=== PATIENT | female | born 1950 | race Caucasian/White ===

== ENCOUNTER 2017-09-25 02:56 | Emergency (ER) | payer MEDICARE ==
[~2017-09-25] VITALS: Ht 152.4 cm; Wt 53.2 kg
[2017-09-25 03:01] VITALS: Ht 152.4 cm; Wt 53.2 kg
[2017-09-25] MEDS ORDERED: PHENYTOIN100 MG/4 M (03:03)
[2017-09-25 03:48] LABS: BASOPHILS 0.2 % (0-2); EOSINOPHILS 0.2 % (0-7); HEMATOCRIT 35.8 % (36.0-48.0); HEMOGLOBIN 12.1 g/dL (12-16); IMMATURE GRANULOCYTES 0.2 % (0-5); LYMPHOCYTES 8.8 % (15-50); MCHC 33.8 g/dL (31.0-37.0); MCV 82.9 fL (80.0-100.0); MEAN PLATELET VOLUME 9.1 fL (7.4-10.4); MONOCYTES 10.2 % (2-11); NEUTROPHILS 80.4 % (40-80); PLATELET COUNT 205 10x3/uL (130-400); RBC 4.32 10x6/uL (4.00-5.40); RDW 17.5 % (11.5-14.5); WBC 4.9 10x3/uL (4.8-10.8)
[2017-09-25 04:03] LABS: ALKALINE PHOSPHATASE 193 U/L (46-116); ALT (SGPT) 17 U/L (10-68); BILIRUBIN - TOTAL 0.22 mg/dL (0.2-1.3); CALC OSMOLALITY 249 mosm/kg (275-300); CALCIUM 8.6 mg/dL (8.5-10.1); CARBON DIOXIDE 27.2 mmol/L (21.0-32.0); CHLORIDE - SERUM 87 mmol/L (98-107); CREATININE - SERUM 0.5 mg/dL (0.6-1.3); GLUCOSE 228 mg/dL (74-106); POTASSIUM - SERUM 3.4 mmol/L (3.5-5.1); PROTEIN - SERUM 6.8 g/dL (6.4-8.2); SODIUM 122 mmol/L (136-145); UREA NITROGEN 5 mg/dL (7-18); eGFR NON AFRICAN AMERICAN > 90 mL/min (90-120)
[2017-09-25 07:06] LABS: APPEARANCE HAZY (CLEAR); BILIRUBIN NEGATIVE (NEGATIVE); COLOR STRAW (YELLOW); GLUCOSE 100 mg/dL (NEGATIVE); KETONE NEGATIVE (NEGATIVE); NITRITE NEGATIVE (NEGATIVE); UROBILINOGEN NORMAL (NORMAL)
[2017-09-25 07:08] LABS: BACTERIA FEW /hpf (NONE SEEN); RED CELLS - URINE RARE /hpf (0-5); WHITE CELLS - URINE 25-50 /hpf (0-5)
[2017-09-25 07:09] LABS: HYALINE CAST OCC /lpf (NONE SEEN); PROTEIN NEGATIVE (NEGATIVE)
[2017-09-25 12:13] VITALS: BP 143/98
== END 2017-09-25 12:12 | disposition other institution (70) ==
LOC: D.ER 02:56 → EDBD 02:56 → D.ER 12:12
PROVIDERS: Family Medicine
DX: E16.2 Hypoglycemia, unspecified (principal); E87.6 Hypokalemia; E87.1 Hypo-osmolality and hyponatremia; T68.XXXA Hypothermia, initial encounter

== ENCOUNTER 2019-02-14 19:38 | Inpatient (IN) | payer MEDICARE ==
[~2019-02-14] VITALS: Ht 152.4 cm; Wt 49.9 kg
[~2019-02-14 19:38] MED LIST: PHENYTOIN100 MG/4 M
[2019-02-14] MEDS ORDERED: ALBUTEROL SULF8.5 GM INH (19:43)
[2019-02-14] MEDS ORDERED: METOPROLOL TART25 MG PO (19:44)
[2019-02-14 20:45] LABS: BASOPHILS 0.5 % (0-2); EOSINOPHILS 5.4 % (0-7); HEMATOCRIT 31.2 % (36.0-48.0); HEMOGLOBIN 9.9 g/dL (12-16); IMMATURE GRANULOCYTES 0.2 % (0-5); MCH 27.7 pg (26.0-34.0); MCHC 31.7 g/dL (31.0-37.0); MCV 87.4 fL (80.0-100.0); MEAN PLATELET VOLUME 8.6 fL (7.4-10.4); MONOCYTES 13.7 % (2-11); NEUTROPHILS 66.2 % (40-80); PLATELET COUNT 312 10x3/uL (130-400); RBC 3.57 10x6/uL (4.00-5.40); RDW 15.4 % (11.5-14.5); WBC 6.3 10x3/uL (4.8-10.8)
[2019-02-14 21:00] LABS: CALC OSMOLALITY 258 mosm/kg (275-300); CARBON DIOXIDE 28.4 mmol/L (21.0-32.0); CHLORIDE - SERUM 96 mmol/L (98-107); CREATININE - SERUM 0.6 mg/dL (0.6-1.3); GLUCOSE 85 mg/dL (74-106); POTASSIUM - SERUM 4.2 mmol/L (3.5-5.1); SODIUM 131 mmol/L (136-145); UREA NITROGEN 5 mg/dL (7-18); eGFR NON AFRICAN AMERICAN > 90 mL/min (90-120)
[2019-02-14 21:14] LABS: ALBUMIN 3.6 g/dL (3.4-5.0); ALKALINE PHOSPHATASE 216 U/L (46-116); ALT (SGPT) 21 U/L (10-68); BILIRUBIN - TOTAL 0.26 mg/dL (0.2-1.3); PRO BNP 749 pg/mL (0-125); THYROID STIMULATING HORMONE 3.06 uIU/mL (0.36-3.74)
[2019-02-14 21:15] LABS: TROPONIN-I < 0.017 ng/mL (0.000-0.060)
[2019-02-14 21:30] VITALS: BP 135/72
[2019-02-14 21:50] LABS: APPEARANCE HAZY (CLEAR); BILIRUBIN NEGATIVE (NEGATIVE); COLOR STRAW (YELLOW); GLUCOSE NEGATIVE (NEGATIVE); KETONE NEGATIVE (NEGATIVE); NITRITE NEGATIVE (NEGATIVE); PROTEIN NEGATIVE (NEGATIVE); SPECIFIC GRAVITY 1.005 (1.005-1.020); UROBILINOGEN NORMAL (NORMAL)
[2019-02-14 21:54] LABS: WHITE CELLS - URINE >50 /hpf (NEGATIVE)
[2019-02-14 21:55] LABS: BACTERIA MANY /hpf (NEGATIVE); EPITHELIAL CELLS 0-5 /hpf (0-5); RED CELLS - URINE 0-5 /hpf (0-5); UDS - AMPHET NEGATIVE QUAL (NEGATIVE); UDS - BARB NEGATIVE QUAL (NEGATIVE); UDS - BENZO NEGATIVE QUAL (NEGATIVE); UDS - COCAINE NEGATIVE QUAL (NEGATIVE); UDS - OPIATE NEGATIVE QUAL (NEGATIVE); UDS - PCP NEGATIVE QUAL (NEGATIVE); UDS - THC NEGATIVE QUAL (NEGATIVE)
--- NOTE | 2019-02-14 22:20 | NUR ---
PT HAS SMALL LAC TO BACK OF HEAD THAT CON'T TO OOZE. DR DE LA TORRE TO ROOM. SMALL NOHEMY X [address] DE LA TORRE.
--- NOTE | 2019-02-14 22:25 | NUR ---
MADRID INSERTED FOR AMS PER STERILE TECHNIQUE. CLEAR YELLOW URINE OBTAINED.
--- NOTE | 2019-02-14 22:26 | NUR ---
KERLEX DRESSING APPLIED TO HEAD. PLACED IN GOWN.
--- NOTE | 2019-02-14 22:38 | NUR ---
PT ALERT AND ORIENTED X3 AT THIS TIME. PT IS APPROPRIATELY ANSWERING QUESTIONS AND IS ABLE TO FOLLOW COMMANDS APPROPRIATELY.
--- NOTE | 2019-02-14 23:00 | NUR ---
ADMITED TO ROOM, ALERT ORIENTIATED TO PERSON AND PLACE, DOES NOT KNOW DAY OR YEAR, OR WHY SHE IS IN HOSPITAL, STATES I HAVE BEEN SICK FOR SEVERAL DAYS, DOES NOT REMEMBER FALLING AT HOME, DRESSING TO HEAD C/D/I, MADRID CATH DRAINING CLEAR YELLOW URINE, SEE ASSESSMENT, CALL LIGHT IN REACH, FALL PRECAUTIONS IN USE
[2019-02-14 23:14] VITALS: BP 128/69; BMI 21.5
[2019-02-15 05:21] VITALS: BP 102/72
[2019-02-15 07:08] LABS: BASOPHILS 0.4 % (0-2); EOSINOPHILS 5.5 % (0-7); HEMATOCRIT 29.2 % (36.0-48.0); HEMOGLOBIN 9.1 g/dL (12-16); IMMATURE GRANULOCYTES 0.2 % (0-5); LYMPHOCYTES 17.8 % (15-50); MCH 27.7 pg (26.0-34.0); MCHC 31.2 g/dL (31.0-37.0); MCV 88.8 fL (80.0-100.0); MEAN PLATELET VOLUME 9.5 fL (7.4-10.4); MONOCYTES 23.2 % (2-11); NEUTROPHILS 52.9 % (40-80); PLATELET COUNT 177 10x3/uL (130-400); RBC 3.29 10x6/uL (4.00-5.40); RDW 15.7 % (11.5-14.5); WBC 5.7 10x3/uL (4.8-10.8)
--- NOTE | 2019-02-15 08:00 | NUR ---
AWAKE AND ORIENTED TO SELF AND PLACE. FALL PRECAUTIONS IN PLACE. MADRID CATH INTACT WITH RAMOS URINE. [place]. LACERATION WITH STALPLES NOTED TO OCCIPITAL LOBE AND INTACT. IVF INFUSING AT PRESCRIBED RATE WITH NO S/S OF INFECTION/INFILTRATION AT SITE. ENCOURAGED TO USE CALL LIGHT FOR ASSIST.
[2019-02-15 08:25] LABS: ALBUMIN 2.7 g/dL (3.4-5.0); ALKALINE PHOSPHATASE 166 U/L (46-116); ALT (SGPT) 16 U/L (10-68); BILIRUBIN - TOTAL 0.24 mg/dL (0.2-1.3); CALC OSMOLALITY 262 mosm/kg (275-300); CARBON DIOXIDE 24.6 mmol/L (21.0-32.0); CHLORIDE - SERUM 101 mmol/L (98-107); CREATININE - SERUM 0.6 mg/dL (0.6-1.3); GLUCOSE 93 mg/dL (74-106); PROTEIN - SERUM 6.4 g/dL (6.4-8.2); SODIUM 133 mmol/L (136-145); UREA NITROGEN 4 mg/dL (7-18); eGFR NON AFRICAN AMERICAN > 90 mL/min (90-120)
[2019-02-15 08:28] VITALS: BP 111/69
[2019-02-15 09:33] LABS: PHENYTOIN (DILANTIN) 25.2 ug/mL (10.0-20.0)
[2019-02-15 09:39] LABS: % SATURATION 11 % (15-55); IRON 39 ug/dl (35-150); TOTAL IRON BIND CAPACITY 339 ug/dl (260-445); UNSAT IRON BIND CAPACITY 300 ug/dl (150-375)
[2019-02-15 11:30] VITALS: BP 155/65
[2019-02-15 12:09] VITALS: BP 155/65
[2019-02-15] MEDS ORDERED: TENORMIN25 MG PO (12:51)
[2019-02-15] MEDS ORDERED: LISINOPRIL10 MG (12:51)
[2019-02-15] MEDS ORDERED: PHENYTEK300 MG (12:53)
[2019-02-15] MEDS ORDERED: RANITIDINE HCL150 M1 PO (12:54)
[2019-02-15] MEDS ORDERED: RANITIDINE HCL150 M1 (12:55)
[2019-02-15] MEDS ORDERED: TRAZODONE HCL150 MG (12:56)
[2019-02-15] MEDS ORDERED: NEURONTIN 300300 MG (12:57)
[2019-02-15] MEDS ORDERED: KEPPRA500 MG (12:58)
[2019-02-15 16:11] VITALS: BP 123/68
[2019-02-15 16:43] LABS: UDS - AMPHET NEGATIVE QUAL (NEGATIVE); UDS - BARB NEGATIVE QUAL (NEGATIVE); UDS - BENZO NEGATIVE QUAL (NEGATIVE); UDS - COCAINE NEGATIVE QUAL (NEGATIVE); UDS - OPIATE NEGATIVE QUAL (NEGATIVE); UDS - PCP NEGATIVE QUAL (NEGATIVE); UDS - THC NEGATIVE QUAL (NEGATIVE)
[2019-02-15 20:51] VITALS: BP 130/70
--- NOTE | 2019-02-15 21:12 | NUR ---
PT ALERT & ORIENTED. VITAL SIGNS STABLE. C/O RLQ ABDOMINAL PAIN 11/01. STATES IT HAS BEEN HURTING "ALL DAY". GAVE 1 TAB NORCO-5 PO AND SCHEDULED MEDS. ASSESSMENT COMPLETE PER FLOW-SHEET. MADE PT SOME ICED TEA. NO OTHER NEEDS. WILL CONTINUE TO MONITOR.
[2019-02-16 01:05] VITALS: BP 126/76
[2019-02-16 05:06] VITALS: BP 124/85
[2019-02-16 06:43] LABS: CALC OSMOLALITY 274 mosm/kg (275-300); CALCIUM 7.8 mg/dL (8.5-10.1); CARBON DIOXIDE 22.5 mmol/L (21.0-32.0); CHLORIDE - SERUM 109 mmol/L (98-107); CREATININE - SERUM 0.5 mg/dL (0.6-1.3); GLUCOSE 77 mg/dL (74-106); POTASSIUM - SERUM 4.2 mmol/L (3.5-5.1); SODIUM 140 mmol/L (136-145); UREA NITROGEN 5 mg/dL (7-18); eGFR NON AFRICAN AMERICAN > 90 mL/min (90-120)
[2019-02-16 07:02] LABS: HEMATOCRIT 24.1 % (36.0-48.0); HEMOGLOBIN 7.6 g/dL (12-16); MCH 27.5 pg (26.0-34.0); MCHC 31.5 g/dL (31.0-37.0); MCV 87.3 fL (80.0-100.0); MEAN PLATELET VOLUME 9.4 fL (7.4-10.4); RBC 2.76 10x6/uL (4.00-5.40); RDW 15.6 % (11.5-14.5)
[2019-02-16 07:16] LABS: PLATELET COUNT 296 10x3/uL (130-400)
[2019-02-16 08:22] VITALS: BP 122/73
[2019-02-16 09:09] LABS: BASOPHILS 1 % (0-2); EOSINOPHILS 9 % (0-7); LYMPHOCYTES 40 % (15-50); MONOCYTES 16 % (2-11); NEUTROPHILS 33 % (40-80); PLATELET ESTIMATE NORMAL
[2019-02-16 09:10] LABS: ACANTHOCYTES OCC; ANISOCYTOSIS OCC; CRENATED CELLS OCC; ROULEAUX OCC; SMUDGE CELLS OCC
--- NOTE | 2019-02-16 09:34 | NUR ---
PT SITTING UP IN BED. RESP EVEN AND UNLABORED. PT ALERT AND ORIENTED. SOMEWHAT CONFUSED TO DAY AND TIME AT THIS TIME. EASILY REORIENTED. NOHEMY NOTED TO POSTERIOR HEAD. NO DRAINAGE NOTED. IV TO LEFT HAND WITH NS @ 100ML/HR INFUSING VIA PUMP. SITE WITHOUT REDNESS OR EDEMA. F/C PATENT TO GRAVITY DRAINING YELLOW URINE. PT DENIES PAIN AT THIS TIME, DENIES FURTHER NEEDS. CL WITHIN REACH. ENCOURAGED TO CALL WITH NEEDS. CONTINUE POC
[2019-02-16 12:21] LABS: % SATURATION 9 % (15-55); IRON 31 ug/dl (35-150); TOTAL IRON BIND CAPACITY 338 ug/dl (260-445); UNSAT IRON BIND CAPACITY 307 ug/dl (150-375)
[2019-02-16 12:52] VITALS: BP 136/74
[2019-02-16 13:57] VITALS: Ht 152.4 cm; Wt 49.9 kg
--- NOTE | 2019-02-16 14:00 | NUR ---
FIRST UNIT PRBC STARTED PER MD ORDERS.
[2019-02-16 14:52] LABS: APPEARANCE SL CLDY (CLEAR); BILIRUBIN NEGATIVE (NEGATIVE); COLOR YELLOW (YELLOW); GLUCOSE NEGATIVE (NEGATIVE); KETONE NEGATIVE (NEGATIVE); NITRITE POSITIVE (NEGATIVE); PROTEIN TRACE mg/dL (NEGATIVE); SPECIFIC GRAVITY 1.015 (1.005-1.020); UROBILINOGEN NORMAL (NORMAL)
[2019-02-16 14:53] LABS: BACTERIA MANY /hpf (NEGATIVE); EPITHELIAL CELLS 0-5 /hpf (0-5); MUCUS <1+ /lpf (NONE SEEN); RED CELLS - URINE 0-5 /hpf (0-5)
--- NOTE | 2019-02-16 17:08 | MORECARE ---
CASE MANAGEMENT DISCHARGE SUMMARY PATIENT: BELLO HILL S UNIT: [id number] ADM DATE: 02/15/19 AGE: 68 : 51 SEX: F ROOM/BED: D.[facility] AUTHOR: DANELLE ALCARAZ PHYSICIAN: REFERRING PHYSICIAN: JOEY EDWARDS MD DATE OF SERVICE: 02/16/19 Discharge Plan Patient Name: BELLO HILL [facility] : 1950 Planned Disposition: Home Anticipated Discharge Date: Discharge Date: Expected LOS: Initial Reviewer: [email or web address] Initial Review Date: 02/14/2019 Generated: 02/16/19 6:08 pm DCPIA - Discharge Planning Initial Assessment Updated by [email or web address]: Lynda Cortez on 02/16/19 5:04 pm * Is the patient Alert and Oriented? Yes * How many steps to enter\exit or inside your home? Ramp/0 * PCP Jimena Delgadillo with [facility] * Pharmacy [facility] * Preadmission Environment Home with Family * ADLs Partial Dependent * Partial ADLs (Assistance needed) Ambulation Bathing Medication Management * Equipment Walker * List name and contact numbers for known caregivers / representatives who currently or will assist patient after discharge: Mike Hill - ssztaz - [phone] * Verbal permission to speak to the caregivers and representatives has been obtained from the patient. Yes * Community resources currently utilized None * Additional services required to return to the preadmission environment? No * Can the patient safely return to the preadmission environment? Yes * Has this patient been hospitalized within the prior 30 days at any hospital? No Patient Name: BELLO HILL Page [id number] at 1708 All edits/amendments must be made on the electronic document DICTATION DATE: 02/16/191707 EQUIPMENT SUPERINTENDENT: NIKITA 02/16/191707 RPT#: [id number] DC DATE: STATUS: ADM IN [facility] [address] [place] [address] END OF REPORT
--- NOTE | 2019-02-16 18:00 | NUR ---
2ND UNIT PRBC INITIATED. PT PABLITO 1ST UNIT WELL.
--- NOTE | 2019-02-16 20:00 | NUR ---
ALERT RESTING IN BED, BLOOD INFUSING WITHOUT DIFFICULTY, AT BEDSIDE, DENIES NEEDS, CO HEADACHE SEE SHIFT ASSESSMENT CALL LIGHT IN REACH
[2019-02-16 20:41] VITALS: BP 136/81
[2019-02-17 01:39] VITALS: BP 130/70
[2019-02-17 04:49] VITALS: BP 130/69
[2019-02-17 06:58] LABS: BASOPHILS 0.5 % (0-2); EOSINOPHILS 7.1 % (0-7); IMMATURE GRANULOCYTES 0.3 % (0-5); LYMPHOCYTES 27.9 % (15-50); MCH 27.9 pg (26.0-34.0); MCHC 32.3 g/dL (31.0-37.0); MCV 86.2 fL (80.0-100.0); MEAN PLATELET VOLUME 8.9 fL (7.4-10.4); MONOCYTES 12.7 % (2-11); NEUTROPHILS 51.5 % (40-80); PLATELET COUNT 266 10x3/uL (130-400); RDW 15.2 % (11.5-14.5)
[2019-02-17 07:01] LABS: CALC OSMOLALITY 268 mosm/kg (275-300); CALCIUM 7.8 mg/dL (8.5-10.1); CARBON DIOXIDE 21.1 mmol/L (21.0-32.0); CHLORIDE - SERUM 105 mmol/L (98-107); GLUCOSE 82 mg/dL (74-106); POTASSIUM - SERUM 3.6 mmol/L (3.5-5.1); SODIUM 136 mmol/L (136-145); UREA NITROGEN 6 mg/dL (7-18)
[2019-02-17 07:02] LABS: CREATININE - SERUM 0.7 mg/dL (0.6-1.3); PHENYTOIN (DILANTIN) 11.9 ug/mL (10.0-20.0); eGFR NON AFRICAN AMERICAN 88 mL/min (90-120)
[2019-02-17 07:04] LABS: HEMATOCRIT 32.5 % (36.0-48.0); HEMOGLOBIN 10.5 g/dL (12-16); RBC 3.77 10x6/uL (4.00-5.40); WBC 3.9 10x3/uL (4.8-10.8)
--- NOTE | 2019-02-17 08:20 | NUR ---
AWAKE AND ALERT. ORIENTED X3. NO C/O AT THIS TIME. LUNGS ARE CLEAR BUT DIMINISHED, OCCASSIONAL DRY COUGH NOTED. SKIN IS INTACT WTIHOUT REDNESS. IV TO LEFT UPPER ARM IS PATENT WITHOUT REDNESS AT INSERTION SITE. MADRID PATENT WITH CLEAR YELLOW URINE. DENIES NEEDS. VERY SLEEPY.
[2019-02-17 08:53] VITALS: BP 152/84
--- NOTE | 2019-02-17 10:00 | NUR ---
RESTING QUIETLY WITH EYES CLOSED. DENIES NEEDS.
[2019-02-17] MEDS ORDERED: OMNICEF300 MG PO (11:20)
--- NOTE | 2019-02-17 11:58 | NUR ---
REQUESTED AND GIVEN ONE HYDROCODONE PO FOR C/O RIGHT SIDE PAIN LEVEL 7. WILL MONITOR.
--- NOTE | 2019-02-17 12:15 | MORECARE ---
CASE MANAGEMENT DISCHARGE SUMMARY PATIENT: BELLO HILL UNIT: [id number] ADM DATE: 02/15/19 AGE: 68 : 51 SEX: F ROOM/BED: D.2233 AUTHOR: LISSA,DOC PHYSICIAN: REFERRING PHYSICIAN: JOEY EDWARDS MD DATE OF SERVICE: 02/17/19 Discharge Plan Patient Name: BELLO HILL Facility: [facility]:[place] : 1950 Planned Disposition: Home Anticipated Discharge Date: Discharge Date: Expected LOS: Initial Reviewer: [email or web address] Initial Review Date: 02/14/2019 Generated: 02/17/19 1:15 pm DCP- Discharge Planning Updated by [email or web address]: Lynda Cortez on 02/16/19 4:[address] Patient Name: BELLO HILL Admission Status: ER Accout number: [id number] Admission Date: 02-15-2019 : 1950 Admission Diagnosis: Attending: JOEY EDWARDS Current LOS: 1 Anticipated DC Date: Planned Disposition: Home Primary Insurance: MEDICARE A & B Discharge Planning Comments: CM met with patient to discuss discharge planning/needs. States she lives with her and one of her daughters. States her takes care of her. States she walks unaided. States if I have any questions, I can call her . I called her to discuss discharge planning. He states that she walks with a walker. States he assists with medication management and showers. States they have a ramp built outside to assist with getting into the home. States she may need home health on discharge and I verbally told him the names of the [facility] in town and he chooses [facility]. States she has been at [facility] in the past, but would like her to return home with home health. CM will continue to follow and assist with discharge planning/needs. Manager Architectural: Lynda Cortez DCPIA - Discharge Planning Initial Assessment Updated by [email or web address]: Lynda Cortez on 02/16/19 5:04 pm * Is the patient Alert and Oriented? Yes * How many steps to enter\exit or inside your home? Ramp/0 * PCP Jimena Delgadillo with [facility] * Pharmacy [facility] * Preadmission Environment Home with Family * ADLs Partial Dependent * Partial ADLs (Assistance needed) Ambulation Bathing Medication Management * Equipment Walker * List name and contact numbers for known caregivers / representatives who currently or will assist patient after discharge: Mike Hill - spouse - [phone] * Verbal permission to speak to the caregivers and representatives has been obtained from the patient. Yes * Community resources currently utilized None * Additional services required to return to the preadmission environment? No * Can the patient safely return to the preadmission environment? Yes * Has this patient been hospitalized within the prior 30 days at any hospital? No External Providers External Provider: [facility] Next Contact Date: Service Request Date: Service Type: Resolution: Reviewer: Comments: Coverage Notice Reviewer: [email or web address] Lissette Cortez Notice Issued Date-Time: 02/16/2019 17:08 Notice Type: Patient Choice Letter Notice Delivered To: Family Member Relationship to Patient: Spouse Specialty Therapist Name: Mike Hill Delivery Method: HAND - Hand Delivered Tammi Days: Prior Verbal Notification: Recipient Understood Notice: Yes Recipient Signature: Yes Med Rec Note Co-signed by Attending: Coverage Notice Comment: TABITHA for [facility] Last DP export: 02/16/19 4:08 Patient Name: BELLO HILL Page [id number] at 1215 All edits/amendments must be made on the electronic document DICTATION DATE: 02/17/19 1215 INFANTRY WEAPONS CREWMEMBER: NIKITA 02/17/19 1215 RPT#: [id number] DC DATE: STATUS: ADM IN [facility] [address] [place] [address] END OF REPORT
--- NOTE | 2019-02-17 12:22 | MORECARE ---
CASE MANAGEMENT DISCHARGE SUMMARY PATIENT: BELLO HILL UNIT: [id number] ADM DATE: 02/15/19 AGE: 68 : 51 SEX: F ROOM/BED: D.2233 AUTHOR: DANELLE ALCARAZ PHYSICIAN: REFERRING PHYSICIAN: JOEY EDWARDS MD DATE OF SERVICE: 02/17/19 Discharge Plan Patient Name: BELLO HILL Facility: [facility]:[place] : 1950 Planned Disposition: Home Anticipated Discharge Date: Discharge Date: Expected LOS: Initial Reviewer: [email or web address] Initial Review Date: 02/14/2019 Generated: 02/17/19 1:22 pm Comments DCP- Discharge Planning Updated by [email or web address]: Lynda Arcemj on 02/17/19 11:[address] Patient Name: BELLO HILL Encounter No: [id number] : 1950 Primary Insurance: MEDICARE A & B Anticipated DC Date: Planned Disposition: Home External Planned Provider: : DCP follow-up note: Patient and family in agreement with discharge plan. No changes to plan. Patient is asleep in room. I called patient's , he states he will be here in about an hour to take her home. He agrees with [facility]. I called Ray with [facility] and clinical faxed. Home today with home health. Case management will follow and assist as needed. Lynda Cortez DCP- Discharge Planning Updated by [email or web address]: Lynda Cortez on 02/16/19 4:[address] Patient Name: BELLO HILL Admission Status: ER Accout number: [id number] Admission Date: 02-15-2019 : 1950 Admission Diagnosis: Attending: JOEY EDWARDS Current LOS: 1 Anticipated DC Date: Planned Disposition: Home Primary Insurance: MEDICARE A & B Discharge Planning Comments: CM met with patient to discuss discharge planning/needs. States she lives with her and one of her daughters. States her takes care of her. States she walks unaided. States if I have any questions, I can call her . I called her to discuss discharge planning. He states that she walks with a walker. States he assists with medication management and showers. States they have a ramp built outside to assist with getting into the home. States she may need home health on discharge and I verbally told him the names of the [facility] in town and he chooses [facility]. States she has been at [facility] in the past, but would like her to return home with home health. CM will continue to follow and assist with discharge planning/needs. Community Relations Liaison: Lynda Cortez DCPIA - Discharge Planning Initial Assessment Updated by [email or web address]: Lynda Cortez on 02/16/19 5:04 pm * Is the patient Alert and Oriented? Yes * How many steps to enter\exit or inside your home? Ramp/0 * PCP Jimena Delgadillo with [facility] * Pharmacy [facility] * Preadmission Environment Home with Family * ADLs Partial Dependent * Partial ADLs (Assistance needed) Ambulation Bathing Medication Management * Equipment Walker * List name and contact numbers for known caregivers / representatives who currently or will assist patient after discharge: Mike Gendle - spouse - [phone] * Verbal permission to speak to the caregivers and representatives has been obtained from the patient. Yes * Community resources currently utilized None * Additional services required to return to the preadmission environment? No * Can the patient safely return to the preadmission environment? Yes * Has this patient been hospitalized within the prior 30 days at any hospital? No Coverage Notice Reviewer: [email or web address] - Lynda Cortez Notice Issued Date-Time: 02/16/2019 17:08 Notice Type: Patient Choice Letter Notice Delivered To: Family Member Relationship to Patient: Spouse Panel Edge Painter Name: Mike Hill Delivery Method: HAND - Hand Delivered Tammi Days: Prior Verbal Notification: Recipient Understood Notice: Yes Recipient Signature: Yes Med Rec Note Co-signed by Attending: Coverage Notice Comment: TABITHA for [facility] Last DP export: 02/17/19 11:15 Patient Name: SERGIO BELLO Page [id number] at 1222 All edits/amendments must be made on the electronic document DICTATION DATE: 02/17/19 1222 GOVERNMENT AFFAIRS MANAGER: NIKITA 02/17/19 1222 RPT#: [id number] DC DATE: STATUS: ADM IN [facility] [address] [place] [address] END OF REPORT
--- NOTE | 2019-02-17 13:08 | NUR ---
SITTING UP IN BED EATING LUNCH. DENIES NEEDS.
--- NOTE | 2019-02-17 15:00 | NUR ---
MADRID D/C WITH TIP INTACT WITHOUT DIFFICULTY. DENIES NEEDS. PLACED BRIEF FOR COMFORT.
--- NOTE | 2019-02-17 16:14 | NUR ---
OT NOTE: PT COMPLETED SUPINE TO SIT WITH [facility]GA. PT COMPLETED ADL MOB WITH RW WITH CGA. PT COMPLETED TOILETING TASKS WITH CGA. THANK YOU, MENA EVERETT
--- NOTE | 2019-02-17 16:57 | NUR ---
DISCHARGED TO HOME AMBULATORY WITH FAMILY. DISCHARGE INSTRUCTION GIVEN BOTH VERBALLY AND WRITTEN. ALL QUESTIONS ANSWERED. PATIENT AND VERBALIZED UNDERSTANDING OF SAME. IV TO LEFT UPPER ARM D/C WITH CAHETER INTACT. ALL BELONGINGS WITH PATIENT.
--- NOTE | 2019-02-18 07:29 | MORECARE ---
CASE MANAGEMENT DISCHARGE SUMMARY PATIENT: BELLO HILL UNIT: [id number] ADM DATE: 02/15/19 AGE: 68 : 51 SEX: F ROOM/BED: D.2233 AUTHOR: DANELLE ALCARAZ PHYSICIAN: REFERRING PHYSICIAN: JOEY EDWARDS MD DATE OF SERVICE: 02/18/19 Discharge Plan Patient Name: BELLO HILL Facility: [facility]:[place] : 1950 Planned Disposition: Home Anticipated Discharge Date: Discharge Date: 02/17/2019 Expected LOS: 0 Initial Reviewer: [email or web address] Initial Review Date: 02/14/2019 Generated: 02/18/19 8:29 am DCP- Discharge Planning Updated by [email or web address]: Lynda Cortez on 02/17/19 11:[address] Patient Name: BELLO HILL Encounter No: [id number] : 1950 Primary Insurance: MEDICARE A & B Anticipated DC Date: Planned Disposition: Home External Planned Provider: : DCP follow-up note: Patient and family in agreement with discharge plan. No changes to plan. Patient is asleep in room. I called patient's , he states he will be here in about an hour to take her home. He agrees with [facility]. I called Ray with [facility] and clinical faxed. Home today with home health. Case management will follow and assist as needed. Lynda Diego DCP- Discharge Planning Updated by [email or web address]: Lynda Diego on 02/16/19 4:[address] Patient Name: BELLO HILL Admission Status: ER Accout number: [id number] Admission Date: 02-15-2019 : 1950 Admission Diagnosis: Attending: JOEY EDWARDS Current LOS: 1 Anticipated DC Date: Planned Disposition: Home Primary Insurance: MEDICARE A & B Discharge Planning Comments: CM met with patient to discuss discharge planning/needs. States she lives with her and one of her daughters. States her takes care of her. States she walks unaided. States if I have any questions, I can call her . I called her to discuss discharge planning. He states that she walks with a walker. States he assists with medication management and showers. States they have a ramp built outside to assist with getting into the home. States she may need home health on discharge and I verbally told him the names of the [facility] in town and he chooses [facility]. States she has been at [facility] in the past, but would like her to return home with home health. CM will continue to follow and assist with discharge planning/needs. Acute Care Registered Nurse: Lynda Cortez DCPIA - Discharge Planning Initial Assessment Updated by [email or web address]: Lynda Cortez on 02/16/19 5:04 pm * Is the patient Alert and Oriented? Yes * How many steps to enter\exit or inside your home? Ramp/0 * PCP Jimena Delgadillo with [facility] * Pharmacy [facility] * Preadmission Environment Home with Family * ADLs Partial Dependent * Partial ADLs (Assistance needed) Ambulation Bathing Medication Management * Equipment Walker * List name and contact numbers for known caregivers / representatives who currently or will assist patient after discharge: Mike Gendle - spouse - [phone] * Verbal permission to speak to the caregivers and representatives has been obtained from the patient. Yes * Community resources currently utilized None * Additional services required to return to the preadmission environment? No * Can the patient safely return to the preadmission environment? Yes * Has this patient been hospitalized within the prior 30 days at any hospital? No Coverage Notice Reviewer: [id number] - Lynda Cortez Notice Issued Date-Time: 02/16/2019 17:08 Notice Type: Patient Choice Letter Notice Delivered To: Family Member Relationship to Patient: Spouse Recruitment Specialist Name: Mike Hill Delivery Method: HAND - Hand Delivered Tammi Days: Prior Verbal Notification: Recipient Understood Notice: Yes Recipient Signature: Yes Med Rec Note Co-signed by Attending: Coverage Notice Comment: TABITHA for [facility] Last DP export: 02/17/19 11:22 Patient Name: SERGIOBELLO Page [phone] at 0729 All edits/amendments must be made on the electronic document DICTATION DATE: 02/18/19728 DAIRY PROCESSING SUPERVISOR: NIKITA 02/18/19728 RPT#: [id number] DC DATE:02/17/19 STATUS: DIS IN [facility] [address] [place] [address] END OF REPORT
== END 2019-02-17 16:59 | disposition home health service (06) | DRG 91 ==
LOC: D.ER 19:38 → OBSVTIME 21:40 → D.MS 21:40
PROVIDERS: Family Medicine; Internal Medicine Nephrology; ADMIT Family Medicine; ATTEND Family Medicine
DX: G92 Toxic encephalopathy (principal); E43 Unspecified severe protein-calorie malnutrition; N39.0 Urinary tract infection, site not specified; E87.1 Hypo-osmolality and hyponatremia; S01.01XA Laceration without foreign body of scalp, initial encounter; W01.198A Fall on same level from slipping, tripping and stumbling with subsequent striking against other object, initial encounter; Y92.009 Unspecified place in unspecified non-institutional (private) residence as the place of occurrence of the external cause; D64.9 Anemia, unspecified; G40.909 Epilepsy, unspecified, not intractable, without status epilepticus; J44.9 Chronic obstructive pulmonary disease, unspecified; I10 Essential (primary) hypertension; T42.0X5A Adverse effect of hydantoin derivatives, initial encounter; B96.20 Unspecified Escherichia coli [E. coli] as the cause of diseases classified elsewhere

== ENCOUNTER 2019-04-03 17:39 | Inpatient (IN) | payer MEDICARE ==
[~2019-04-03] VITALS: Ht 152.4 cm; Wt 59.0 kg
[~2019-04-03 17:39] MED LIST changes: +ALBUTEROL SULF8.5 GM INH; +KEPPRA500 MG PO; +LISINOPRIL10 MG PO; +METOPROLOL TART25 MG PO; +NEURONTIN 300300 MG PO; +OMNICEF300 MG PO; +PHENYTEK300 MG; +PHENYTEK300 MG PO; -PHENYTOIN100 MG/4 M; +RANITIDINE HCL150 M1 PO; +TENORMIN25 MG PO; +TRAZODONE HCL150 MG
[2019-04-03 18:26] LABS: BASOPHILS 0.2 % (0-2); EOSINOPHILS 1.8 % (0-7); HEMOGLOBIN 10.1 g/dL (12-16); IMMATURE GRANULOCYTES 0.2 % (0-5); LYMPHOCYTES 24.6 % (15-50); MCH 28.6 pg (26.0-34.0); MCHC 32.6 g/dL (31.0-37.0); MCV 87.8 fL (80.0-100.0); MEAN PLATELET VOLUME 8.8 fL (7.4-10.4); MONOCYTES 9.8 % (2-11); NEUTROPHILS 63.4 % (40-80); RBC 3.53 10x6/uL (4.00-5.40); RDW 18.9 % (11.5-14.5); WBC 4.5 10x3/uL (4.8-10.8)
[2019-04-03 18:29] LABS: PLATELET COUNT 349 10x3/uL (130-400)
[2019-04-03 19:02] LABS: CALC OSMOLALITY 278 mosm/kg (275-300); CALCIUM 8.9 mg/dL (8.5-10.1); CARBON DIOXIDE 27.6 mmol/L (21.0-32.0); CHLORIDE - SERUM 101 mmol/L (98-107); CREATININE - SERUM 0.6 mg/dL (0.6-1.3); GLUCOSE 137 mg/dL (74-106); SODIUM 138 mmol/L (136-145); UREA NITROGEN 16 mg/dL (7-18); eGFR NON AFRICAN AMERICAN > 90 mL/min (90-120)
[2019-04-03 19:18] LABS: ALBUMIN 3.2 g/dL (3.4-5.0); ALKALINE PHOSPHATASE 184 U/L (46-116); ALT (SGPT) 24 U/L (10-68); BILIRUBIN - TOTAL 0.24 mg/dL (0.2-1.3); CKMB 0.5 U/L (0.0-3.6); CREATINE KINASE 53 UL (21-215); MAGNESIUM - SERUM 1.6 mg/dL (1.8-2.4); PRO BNP 167 pg/mL (0-125); PROTEIN - SERUM 6.6 g/dL (6.4-8.2)
[2019-04-03 19:22] LABS: TROPONIN-I < 0.017 ng/mL (0.000-0.060)
[2019-04-03 20:32] LABS: APPEARANCE CLEAR (CLEAR); BILIRUBIN NEGATIVE (NEGATIVE); COLOR YELLOW (YELLOW); GLUCOSE NEGATIVE (NEGATIVE); KETONE NEGATIVE (NEGATIVE); NITRITE NEGATIVE (NEGATIVE); PROTEIN NEGATIVE (NEGATIVE); SPECIFIC GRAVITY 1.015 (1.005-1.020); UROBILINOGEN NORMAL (NORMAL)
[2019-04-03 20:51] LABS: UDS - AMPHET NEGATIVE QUAL (NEGATIVE); UDS - BARB NEGATIVE QUAL (NEGATIVE); UDS - BENZO NEGATIVE QUAL (NEGATIVE); UDS - COCAINE NEGATIVE QUAL (NEGATIVE); UDS - OPIATE NEGATIVE QUAL (NEGATIVE); UDS - PCP NEGATIVE QUAL (NEGATIVE); UDS - THC NEGATIVE QUAL (NEGATIVE)
--- NOTE | 2019-04-03 22:36 | NUR ---
THIS NURSE SPOKE TO PT , WHO RELAYED THAT HE WILL BE BACK TO CHECK ON PT IN MORNING D/T WEATHER.
--- NOTE | 2019-04-03 23:46 | NUR ---
PT ARRIVED TO THE FLOOR. ALERT WITH SOME CONFUSION. ORIENTED TO SELF. IV SITE LT HAND DRESSING CLEAN DRY AND INTACT. IV SITE RT ANKLE DRESSING CLEAN DRY AND INTACT. SKIN CLEAN DRY AND INTACT. BOWEL SOUNDS ACTIVE. ABD TENDER TO PALPATION. LUNG SOUNDS CLEAR. NO LOWER LEG SWELLING PRESENT. SAMMY ALARM ON YELLOW GOWN ON. WILL CONTINUE PLAN OF CARE. CALL LIGHT IN REACH. BED LOWERED AND LOCKED. BED RAILS UPX2.
[2019-04-04] VITALS (7 sets, daily range): BP systolic 93–121; BP diastolic 46–67; Ht 152.4 cm; Wt 59.0 kg
--- NOTE | 2019-04-04 11:09 | NUR ---
PT LYING IN BED CONFUSED DOESN'T KNOW WHY SHE IS HERE REORIENTED PT AND PT CONTINUES TO BE CONFUSED MINUTES LATER. WILL CONTINUE WITH PLAN OF CARE. BED ALARM ON, CL IN REACH
[2019-04-04 11:16] LABS: BASOPHILS 1.1 % (0-2); EOSINOPHILS 3.2 % (0-7); HEMATOCRIT 36.2 % (36.0-48.0); HEMOGLOBIN 11.7 g/dL (12-16); IMMATURE GRANULOCYTES 0.2 % (0-5); LYMPHOCYTES 40.4 % (15-50); MCHC 32.3 g/dL (31.0-37.0); MEAN PLATELET VOLUME 8.7 fL (7.4-10.4); MONOCYTES 12.2 % (2-11); NEUTROPHILS 42.9 % (40-80); PLATELET COUNT 400 10x3/uL (130-400); RBC 4.03 10x6/uL (4.00-5.40); RDW 18.9 % (11.5-14.5); WBC 4.8 10x3/uL (4.8-10.8)
[2019-04-04 11:17] LABS: MCV 89.8 fL (80.0-100.0)
[2019-04-04 11:32] LABS: ALBUMIN 2.7 g/dL (3.4-5.0); ALKALINE PHOSPHATASE 169 U/L (46-116); ALT (SGPT) 19 U/L (10-68); BILIRUBIN - TOTAL 0.14 mg/dL (0.2-1.3); CALC OSMOLALITY 273 mosm/kg (275-300); CALCIUM 8.4 mg/dL (8.5-10.1); CARBON DIOXIDE 27.2 mmol/L (21.0-32.0); CHLORIDE - SERUM 103 mmol/L (98-107); CREATININE - SERUM 0.7 mg/dL (0.6-1.3); POTASSIUM - SERUM 3.7 mmol/L (3.5-5.1); PROTEIN - SERUM 6.3 g/dL (6.4-8.2); SODIUM 137 mmol/L (136-145); UREA NITROGEN 15 mg/dL (7-18); eGFR NON AFRICAN AMERICAN 88 mL/min (90-120)
[2019-04-04 11:33] LABS: GLUCOSE 82 mg/dL (74-106)
--- NOTE | 2019-04-04 16:39 | NUR ---
PT STATED SHE WANTS TO EAT AND DID NOT COME TO HOSPITAL TO [facility], EXPLAINED TO PT THAT SHE CAME IN WITH ABDOMINAL PAIN AND THAT SHE NEEDS TO FOLLOW ORDERS FOR GUT REST TO SEE WHAT IS CAUSING HER PAIN, PT STATED SHE STILL HAS ABD PAIN AND WILL JUST CALL HER SO HE CAN COME GET HER. PT WILL NOT LISTEN TO REASON. CL IN REACH CONTINUE WITH PLAN OF CARE
--- NOTE | 2019-04-04 16:52 | NUR ---
WANTS TO DC HOME BECAUSE SHE CANNOT HAVE REGULAR DIET.SHE IS WITHOUT DISTRESS.
--- NOTE | 2019-04-04 19:10 | NUR ---
BEDSIDE REPORT RECEIVED. PATIENT ALERT AND CONFUSED. SITTING IN BED. HAS RT ANKLE IV THAT IS SALINE LOCKED AT THIS TIME. PATIENT AGGITATED WHEN ENTERING THE ROOM. UPSET ABOUT DIET AND FALL ALARM. PATIENT STATES "I WALK BY MYSELF AT HOME!" "I AM STARVING! THIS IS STUPID!" ADDRESSED PATIENT CONCERNS AND EDUCATED ON NEED FOR BOTH FALL PRECAUTIONS AND CLD. PATIENT PASSIVE WITH EDUCATION. CALL LIGHT IN REACH. CPOC.
--- NOTE | 2019-04-04 20:40 | NUR ---
PATIENT CONTINUALLY UPSET ABOUT BED ALARM. PATIENT SIGNED SAMMY ALARM REFUSAL. ASKED PATIENT TO PLEASE CALL THIS NURSE TO AVOID FALLS WHEN AMBULATING TO THE BATHROOM. PATIENT PASSIVE WITH REQUESTS.
--- NOTE | 2019-04-04 21:00 | NUR ---
PATIENT HAS MCDONALDS FOOD IN ROOM. HIDING UNDER COVERS. WHEN ASKED ABOUT IT SHE DENIES. PROVIDED MORE EDUCATION ABOUT CLD. PATIENT CONTINUES TO BE PASSICVE WITH EDUCATION.
--- NOTE | 2019-04-05 03:35 | NUR ---
I have reviewed this patient and I concur with the Shift Assessment completed by the Licensed Practical Nurse today this shift.
[2019-04-05 04:00] VITALS: BP 113/66
[2019-04-05 04:57] LABS: BASOPHILS 0.3 % (0-2); EOSINOPHILS 2.9 % (0-7); LYMPHOCYTES 40.1 % (15-50); MCH 28.4 pg (26.0-34.0); MCHC 32.1 g/dL (31.0-37.0); MCV 88.3 fL (80.0-100.0); MEAN PLATELET VOLUME 8.3 fL (7.4-10.4); MONOCYTES 15.4 % (2-11); NEUTROPHILS 41.3 % (40-80); PLATELET COUNT 349 10x3/uL (130-400); RDW 18.8 % (11.5-14.5); WBC 3.8 10x3/uL (4.8-10.8)
[2019-04-05 04:59] LABS: RBC 3.17 10x6/uL (4.00-5.40)
[2019-04-05 05:22] LABS: ALBUMIN 2.4 g/dL (3.4-5.0); ALKALINE PHOSPHATASE 154 U/L (46-116); ALT (SGPT) 21 U/L (10-68); BILIRUBIN - TOTAL 0.14 mg/dL (0.2-1.3); CALC OSMOLALITY 271 mosm/kg (275-300); CALCIUM 7.7 mg/dL (8.5-10.1); CARBON DIOXIDE 26.7 mmol/L (21.0-32.0); CHLORIDE - SERUM 103 mmol/L (98-107); CREATININE - SERUM 0.6 mg/dL (0.6-1.3); GLUCOSE 79 mg/dL (74-106); POTASSIUM - SERUM 3.4 mmol/L (3.5-5.1); PROTEIN - SERUM 5.4 g/dL (6.4-8.2); SODIUM 136 mmol/L (136-145); UREA NITROGEN 15 mg/dL (7-18); eGFR NON AFRICAN AMERICAN > 90 mL/min (90-120)
--- NOTE | 2019-04-05 07:00 | NUR ---
PT IS RESTING IN BED WITH EYES CLOSED. RESPIRATIONS ARE EVEN AND UNLABORED. PT IS EASILY AROUSED WITH VERBAL STIMULATION. PT IS AAO X 4 UPON AROUSAL AND ANSWERS ALL QUESTIONS APPROPRIATELY. PT REPORTS PAIN TO LEFT 'SIDE". PT STATES THAT SHE "WANTS SOME HAM AND BOILED EGGS". PT DENIES PRESENCE OF N/V AT THIS TIME. AND DENIES ANY VOMITING "RECENTLY". ALL FALL PRECAUTIONS ARE IN PLACE. BED IS IN THE LOWEST POSITION. CALL LIGHT AND BEDSIDE TABLE ARE WITHIN REACH. SIDE RAILS X 2. PT DENIES FURTHER NEEDS. WILL CONT TO MONITOR.
[2019-04-05 10:00] VITALS: BP 92/55
[2019-04-05 13:17] VITALS: BP 125/87
[2019-04-05 16:27] VITALS: BP 112/68
--- NOTE | 2019-04-05 19:15 | NUR ---
REPORT RECEIVED. PATIENT MORE ORIENTED THAN PRIOR HS SHIFT. PATIENT ALERT AT BEDSIDE. PATIENT HAS RIGHT ANKLE SALINE LOCKED. DENIES NEEDS AT THIS TIME. CPOC.
--- NOTE | 2019-04-05 19:50 | NUR ---
PATIENT AMBULATED UNIT WITH
[2019-04-05 20:00] VITALS: BP 118/70
[2019-04-06 04:00] VITALS: BP 99/54
--- NOTE | 2019-04-06 04:22 | NUR ---
I have reviewed this patient and I concur with the Shift Assessment completed by the Licensed Practical Nurse today this shift.
[2019-04-06 05:13] LABS: BASOPHILS 0.6 % (0-2); EOSINOPHILS 4.4 % (0-7); HEMATOCRIT 29.6 % (36.0-48.0); HEMOGLOBIN 9.5 g/dL (12-16); IMMATURE GRANULOCYTES 0.3 % (0-5); LYMPHOCYTES 39.1 % (15-50); MCH 28.4 pg (26.0-34.0); MCHC 32.1 g/dL (31.0-37.0); MCV 88.6 fL (80.0-100.0); MEAN PLATELET VOLUME 8.4 fL (7.4-10.4); MONOCYTES 15.6 % (2-11); PLATELET COUNT 363 10x3/uL (130-400); RBC 3.34 10x6/uL (4.00-5.40); RDW 19.1 % (11.5-14.5); WBC 3.4 10x3/uL (4.8-10.8)
[2019-04-06 05:36] LABS: ALBUMIN 2.3 g/dL (3.4-5.0); ALKALINE PHOSPHATASE 170 U/L (46-116); ALT (SGPT) 19 U/L (10-68); BILIRUBIN - TOTAL 0.15 mg/dL (0.2-1.3); CALC OSMOLALITY 274 mosm/kg (275-300); CALCIUM 7.7 mg/dL (8.5-10.1); CARBON DIOXIDE 28.3 mmol/L (21.0-32.0); CHLORIDE - SERUM 105 mmol/L (98-107); CREATININE - SERUM 0.7 mg/dL (0.6-1.3); GLUCOSE 90 mg/dL (74-106); PROTEIN - SERUM 5.3 g/dL (6.4-8.2); SODIUM 138 mmol/L (136-145); eGFR NON AFRICAN AMERICAN 88 mL/min (90-120)
[2019-04-06 05:55] LABS: UREA NITROGEN 11 mg/dL (7-18)
[2019-04-06 08:56] VITALS: BP 106/63
[2019-04-06 12:18] VITALS: BP 100/59
--- NOTE | 2019-04-06 12:30 | MORECARE ---
CASE MANAGEMENT DISCHARGE SUMMARY PATIENT: BELLO HILL S UNIT: [id number] ADM DATE: 04/03/19 AGE: 68 : 52 SEX: F ROOM/BED: D.2225 AUTHOR: DANELLE ALCARAZ PHYSICIAN: REFERRING PHYSICIAN: DOMI LOCKE MD DATE OF SERVICE: 04/06/19 Discharge Plan Patient Name: BELLO HILL Facility: [facility]:[place] : 1950 Planned Disposition: Home with Home Health Anticipated Discharge Date: 04/06/19 Discharge Date: Expected LOS: 3 Initial Reviewer: [email or web address] Initial Review Date: 04/06/2019 Generated: 04/06/19 1:29 pm DCPIA - Discharge Planning Initial Assessment Updated by [email or web address]: Lynda Cortez on 04/06/19 12:27 pm * Is the patient Alert and Oriented? Yes * How many steps to enter\exit or inside your home? RAMP/0 * PCP RAO ALVAREZ AT [facility] * Pharmacy [facility] * Preadmission Environment Home with Family * ADLs Partial Dependent * Partial ADLs (Assistance needed) Ambulation Bathing Medication Management * Equipment Walker * List name and contact numbers for known caregivers / representatives who currently or will assist patient after discharge: Mike Hill - [facility] - [phone] Opal Bueno - [phone] * Verbal permission to speak to the caregivers and representatives has been obtained from the patient. Yes * Community resources currently utilized Home Health * Please name any agencies selected above. [facility] * Additional services required to return to the preadmission environment? No * Can the patient safely return to the preadmission environment? Yes * Has this patient been hospitalized within the prior 30 days at any hospital? No Patient Name: BELLO HILL Page 12014 at 1230 All edits/amendments must be made on the electronic document DICTATION DATE: 04/06/19 1229 CHASSIS MECHANIC: NIKITA 04/06/19 1229 RPT#: [id number] DC DATE: STATUS: ADM IN [facility] [address] [place] [address] END OF REPORT
--- NOTE | 2019-04-06 12:38 | MORECARE ---
CASE MANAGEMENT DISCHARGE SUMMARY PATIENT: BELLO HILL UNIT: [id number] ADM DATE: 04/03/19 AGE: 68 : 52 SEX: F ROOM/BED: D.2225 AUTHOR: LISSA,DOC PHYSICIAN: REFERRING PHYSICIAN: DOMI LOCKE MD DATE OF SERVICE: 04/06/19 Discharge Plan Patient Name: BELLO HILL Facility: [facility]:[place] : 1950 Planned Disposition: Home with Home Health Anticipated Discharge Date: 04/06/19 Discharge Date: Expected LOS: 3 Initial Reviewer: [email or web address] Initial Review Date: 04/06/2019 Generated: 04/06/19 1:38 pm Comments DCP- Discharge Planning Updated by [id number]: Lynda Cortez on 04/06/19 11:[address] Patient Name: BELLO HILL Admission Status: ER Accout number: [id number] Admission Date: 04-03-2019 : 1950 Admission Diagnosis: Attending: JAY Current LOS: 3 Anticipated DC Date: 04-06-2019 Planned Disposition: Home with Home Health Primary Insurance: MEDICARE A & B Discharge Planning Comments: CM met with patient to complete initial dc planning assessment. CM educated patient on the CM role and verbal consent given by patient to complete assessment. Patient lives at home with her spouse and daughter. At discharge patient plans to return and feels this is a safe discharge. CM discussed availability of home health, rehab services, and medical equipment. Patient states she has had home health. Patient asks me to call her spouse while I am in her room to discuss dc planning further. I called her spouse and he states she had [facility] and would like it continued on discharge. I informed the that I anticipate discharge today. He states her daughter assists in her care and verified information on face sheet. CM will continue to follow and will assist as needed with dc plans/needs. Shovel Oiler: Lynda Cortez DCPIA - Discharge Planning Initial Assessment Updated by [email or web address]: Lynda Cortez on 04/06/19 12:27 pm * Is the patient Alert and Oriented? Yes * How many steps to enter\exit or inside your home? RAMP/0 * PCP RAO ALVAREZ AT [place] * Pharmacy [facility] * Preadmission Environment Home with Family * ADLs Partial Dependent * Partial ADLs (Assistance needed) Ambulation Bathing Medication Management * Equipment Walker * List name and contact numbers for known caregivers / representatives who currently or will assist patient after discharge: Mike Hill - spouse - [phone] Opal Bueno - [phone] * Verbal permission to speak to the caregivers and representatives has been obtained from the patient. Yes * Community resources currently utilized Home Health * Please name any agencies selected above. [facility] * Additional services required to return to the preadmission environment? No * Can the patient safely return to the preadmission environment? Yes * Has this patient been hospitalized within the prior 30 days at any hospital? No Coverage Notice Reviewer: [email or web address] Cortez Notice Issued Date-Time: 04/06/2019 12:31 Notice Type: IM Discharge Notice Notice Delivered To: Patient Relationship to Patient: Self Credentialing Specialist Name: Delivery Method: HAND - Hand Delivered Tammi Days: Prior Verbal Notification: Recipient Understood Notice: Yes Recipient Signature: Yes Med Rec Note Co-signed by Attending: Coverage Notice Comment: IMM explained, signed, given, copy placed in MR Reviewer: [id number] Lissette Cortez Notice Issued Date-Time: 04/06/2019 12:31 Notice Type: Patient Choice Letter Notice Delivered To: Patient Relationship to Patient: Self Credentialing Specialist Name: Delivery Method: HAND - Hand Delivered Tammi Days: Prior Verbal Notification: Recipient Understood Notice: Yes Recipient Signature: Yes Med Rec Note Co-signed by Attending: Coverage Notice Comment: riana for [facility] Last DP export: 04/06/19 11:30 a Patient Name: BELLO HILL Page [id number] at 1238 All edits/amendments must be made on the electronic document DICTATION DATE: 04/06/19 1238 PLATFORM ENGINEER: NIKITA 04/06/19 1238 RPT#: [id number] DC DATE: STATUS: ADM IN [facility] [address] [place] [address] END OF REPORT
--- NOTE | 2019-04-06 14:01 | MORECARE ---
CASE MANAGEMENT DISCHARGE SUMMARY PATIENT: BELLO HILL UNIT: [id number] ADM DATE: 04/03/19 AGE: 68 : 51 SEX: F ROOM/BED: D.2225 AUTHOR: LISSADOC PHYSICIAN: REFERRING PHYSICIAN: DOMI LOCKE MD DATE OF SERVICE: 04/06/19 Discharge Plan Patient Name: BELLO HILL Facility: [facility]:[place] : 1950 Planned Disposition: Home with Home Health Anticipated Discharge Date: 04/06/19 Discharge Date: Expected LOS: 3 Initial Reviewer: [email or web address] Initial Review Date: 04/06/2019 Generated: 04/06/19 3:00 pm Comments DCP- Discharge Planning Updated by [id number]: Lynda Cortez on 04/06/19 12:[address] Patient Name: BELLO HILL Encounter No: [id number] : 1950 Primary Insurance: MEDICARE A & B Anticipated DC Date: 04-06-2019 Planned Disposition: Home with Home Health External Planned Provider: : DCP follow-up note: Patient in agreement with discharge plan. No changes to plan. I called [facility] and spoke with Tomas and clinical faxed, they will resume care. Case management will follow and assist as needed. Lynda Cortez DCP- Discharge Planning Updated by [email or web address]: Lynda Cortez on 04/06/19 11:[address] Patient Name: BELLO HILL Admission Status: ER Accout number: [id number] Admission Date: 04-03-2019 : 1950 Admission Diagnosis: Attending: JAY Current LOS: 3 Anticipated DC Date: 04-06-2019 Planned Disposition: Home with Home Health Primary Insurance: MEDICARE A & B Discharge Planning Comments: CM met with patient to complete initial dc planning assessment. CM educated patient on the CM role and verbal consent given by patient to complete assessment. Patient lives at home with her spouse and daughter. At discharge patient plans to return and feels this is a safe discharge. CM discussed availability of home health, rehab services, and medical equipment. Patient states she has had home health. Patient asks me to call her spouse while I am in her room to discuss dc planning further. I called her spouse and he states she had [facility] and would like it continued on discharge. I informed the that I anticipate discharge today. He states her daughter assists in her care and verified information on face sheet. CM will continue to follow and will assist as needed with dc plans/needs. Air Saw Operator: Lyndawilli Cortez DCPIA - Discharge Planning Initial Assessment Updated by [email or web address]: Lynda Cortez on 04/06/19 12:27 pm * Is the patient Alert and Oriented? Yes * How many steps to enter\exit or inside your home? RAMP/0 * PCP RAO ALVAREZ AT [place] * Pharmacy [facility] * Preadmission Environment Home with Family * ADLs Partial Dependent * Partial ADLs (Assistance needed) Ambulation Bathing Medication Management * Equipment Walker * List name and contact numbers for known caregivers / representatives who currently or will assist patient after discharge: Mike Hill - [facility] - [phone] Opal Bueno - [phone] * Verbal permission to speak to the caregivers and representatives has been obtained from the patient. Yes * Community resources currently utilized Home Health * Please name any agencies selected above. [facility] * Additional services required to return to the preadmission environment? No * Can the patient safely return to the preadmission environment? Yes * Has this patient been hospitalized within the prior 30 days at any hospital? No External Providers [facility] Next Contact Date: Service Request Date: Service Type: Resolution: Reviewer: Comments: Coverage Notice Reviewer: [email or web address] Lissette Cortez Notice Issued Date-Time: 04/06/2019 12:31 Notice Type: IM Discharge Notice Notice Delivered To: Patient Relationship to Patient: Self Cash Teller Name: Delivery Method: HAND - Hand Delivered Tammi Days: Prior Verbal Notification: Recipient Understood Notice: Yes Recipient Signature: Yes Med Rec Note Co-signed by Attending: Coverage Notice Comment: IMM explained, signed, given, copy placed in MR Reviewer: [id number] Lissette Cortez Notice Issued Date-Time: 04/06/2019 12:31 Notice Type: Patient Choice Letter Notice Delivered To: Patient Relationship to Patient: Self Cash Teller Name: Delivery Method: HAND - Hand Delivered Tammi Days: Prior Verbal Notification: Recipient Understood Notice: Yes Recipient Signature: Yes Med Rec Note Co-signed by Attending: Coverage Notice Comment: riana for [facility] Last DP export: 04/06/19 11:38 a Patient Name: BELLO HILL Page [phone] at 1401 All edits/amendments must be made on the electronic document DICTATION DATE: 04/06/191399 GEOTECHNICAL ENGINEERING TECHNICIAN: NIKITA 04/06/19 1400 RPT#: [id number] DC DATE: STATUS: ADM IN [facility] [address] [place] [address] END OF REPORT
--- NOTE | 2019-04-06 15:35 | NUR ---
PATIENT RECIEVED DC INSTRUCTIONS. VERBALIZED UNDERSTANDING. NO QUESTIONS AT THIS TIME. IV REMOVED FROM LEFT ANKLE WITH CATH TIP INTACT. WAITING FOR TRANSPORTATION FOR DC. CALL LIGHT WITHIN REACH.
--- NOTE | 2019-04-06 18:37 | NUR ---
PATIENT ESCORTED DOWN TO PRIVATE VEHICLE BY FARM OPERATIONS MANAGER AND FAMILY TO WITH PERSONAL BELONGINGS.
--- NOTE | 2019-04-07 14:46 | MORECARE ---
CASE MANAGEMENT DISCHARGE SUMMARY PATIENT: BELLO HILL UNIT: [id number] ADM DATE: 04/03/19 AGE: 69 : 52 SEX: F ROOM/BED: D.2225 AUTHOR: LISSADOC PHYSICIAN: REFERRING PHYSICIAN: DOMI LOCKE MD DATE OF SERVICE: 04/07/19 Discharge Plan Patient Name: BELLO HILL Facility: [facility]:[place] : 1950 Planned Disposition: Home with Home Health Anticipated Discharge Date: 04/06/19 Discharge Date: 04/06/2019 Expected LOS: 3 Initial Reviewer: [email or web address] Initial Review Date: 04/06/2019 Generated: 04/07/19 3:45 pm DCP- Discharge Planning Updated by [email or web address]: Lynda Cortez on 04/06/19 12:[address] Patient Name: BELLO HILL Encounter No: [id number] : 1950 Primary Insurance: MEDICARE A & B Anticipated DC Date: 04-06-2019 Planned Disposition: Home with Home Health External Planned Provider: : DCP follow-up note: Patient in agreement with discharge plan. No changes to plan. I called [facility] and spoke with Tomas and clinical faxed, they will resume care. Case management will follow and assist as needed. Lynda Diego DCP- Discharge Planning Updated by [email or web address]: Lynda Diego on 04/06/19 11:[address] Patient Name: BELLO HILL Admission Status: ER Accout number: [id number] Admission Date: 04-03-2019 : 1950 Admission Diagnosis: Attending: JAY Current LOS: 3 Anticipated DC Date: 04-06-2019 Planned Disposition: Home with Home Health Primary Insurance: MEDICARE A & B Discharge Planning Comments: CM met with patient to complete initial dc planning assessment. CM educated patient on the CM role and verbal consent given by patient to complete assessment. Patient lives at home with her spouse and daughter. At discharge patient plans to return and feels this is a safe discharge. CM discussed availability of home health, rehab services, and medical equipment. Patient states she has had home health. Patient asks me to call her spouse while I am in her room to discuss dc planning further. I called her spouse and he states she had [facility] and would like it continued on discharge. I informed the that I anticipate discharge today. He states her daughter assists in her care and verified information on face sheet. CM will continue to follow and will assist as needed with dc plans/needs. Development Intern: Lynda Cortez DCPIA - Discharge Planning Initial Assessment Updated by [email or web address]: Lynda Cortez on 04/06/19 12:27 pm * Is the patient Alert and Oriented? Yes * How many steps to enter\exit or inside your home? RAMP/0 * PCP RAO ALVAREZ AT [place] * Pharmacy [facility] * Preadmission Environment Home with Family * ADLs Partial Dependent * Partial ADLs (Assistance needed) Ambulation Bathing Medication Management * Equipment Walker * List name and contact numbers for known caregivers / representatives who currently or will assist patient after discharge: Mike Hill - spouse - [phone] Opal Bueno - [phone] * Verbal permission to speak to the caregivers and representatives has been obtained from the patient. Yes * Community resources currently utilized Home Health * Please name any agencies selected above. [facility] * Additional services required to return to the preadmission environment? No * Can the patient safely return to the preadmission environment? Yes * Has this patient been hospitalized within the prior 30 days at any hospital? No Coverage Notice Reviewer: [email or web address] Lissette Cortez Notice Issued Date-Time: 04/06/2019 12:31 Notice Type: IM Discharge Notice Notice Delivered To: Patient Relationship to Patient: Self Logistics Planning Engineer Name: Delivery Method: HAND - Hand Delivered Tammi Days: Prior Verbal Notification: Recipient Understood Notice: Yes Recipient Signature: Yes Med Rec Note Co-signed by Attending: Coverage Notice Comment: IMM explained, signed, given, copy placed in MR Reviewer: [id number] Lissette Cortez Notice Issued Date-Time: 04/06/2019 12:31 Notice Type: Patient Choice Letter Notice Delivered To: Patient Relationship to Patient: Self Logistics Planning Engineer Name: Delivery Method: HAND - Hand Delivered Tammi Days: Prior Verbal Notification: Recipient Understood Notice: Yes Recipient Signature: Yes Med Rec Note Co-signed by Attending: Coverage Notice Comment: riana for [facility] Last DP export: 04/06/19 1:01 p Patient Name: BELLO HILL Page [phone] at 1446 All edits/amendments must be made on the electronic document DICTATION DATE: 04/07/191444 LOAD OUT WORKER: NIKITA 04/07/191444 RPT#: [id number] DC DATE:04/06/19 STATUS: DIS IN [facility] [address] [place] [address] END OF REPORT
== END 2019-04-06 18:41 | disposition home health service (06) | DRG 444 ==
LOC: D.ER 17:39 → D.MS 21:22
PROVIDERS: Family Medicine; ADMIT Family Medicine; ATTEND Family Medicine
DX: K80.20 Calculus of gallbladder without cholecystitis without obstruction (principal); G93.41 Metabolic encephalopathy; E43 Unspecified severe protein-calorie malnutrition; G72.81 Critical illness myopathy; K92.1 Melena; W18.30XA Fall on same level, unspecified, initial encounter; Y92.009 Unspecified place in unspecified non-institutional (private) residence as the place of occurrence of the external cause; G40.909 Epilepsy, unspecified, not intractable, without status epilepticus; D64.9 Anemia, unspecified; J44.9 Chronic obstructive pulmonary disease, unspecified; I25.2 Old myocardial infarction